=== PATIENT | female | born 1970 ===

== ENCOUNTER 2019-07-17 20:21 | Emergency (ER) | payer BC ==
[2019-07-17 20:50] VITALS: BP 132/75
--- NOTE | 2019-07-17 20:51 | UC ---
Throat Pain/Nasal [place] HPI - HPI Summary HPI Summary: 48 yo with onset of sore throat and dysphagia since this morning, without fever. Typically healthy, she has seasonal allergies and went for a run on Tuesday, with development of a whole head headache later that night which she associated with allergies. Headache controlled with Zyrtec and aleve, is here because of concern about her sore throat. dx with sinusitis and laryngitis yesterday and was started on an antibiotic. Takes benadryl nightly. No vomiting, visual changes, fever. - History of Current Complaint Chief Complaint: UCRespiratory Stated Complaint: SORE THROAT Time Seen by Provider: 07/17/19 20:41 Hx Obtained From: Patient Hx Last Menstrual Period: 1 week ago Onset/Duration: Sudden Onset, Lasting Days - 1 day of sore throat Pain Intensity: 3 Cough: None Associated Signs & Symptoms: Positive: Dysphagia, Sinus Discomfort. Negative: Wheezing, Hoarseness, Nasal Discharge, Fever, Vomiting, Rash Related History: Seasonal Allergies - Epiglottits Risk Factors Epiglottis Risk Factors: Negative - Allergies/Home Medications Allergies/Adverse Reactions: Allergies Allergy/AdvReac Type Severity Reaction Status Date / Time Penicillins Allergy Unknown Verified 07/17/19 20:32 Reaction Details Home Medications: Home Medications Azithromyxin REBECA (NF) [Z-Rebeca (Zithromax) 250 mg tabs #6] 2 tab PO .TODAY, THEN 1 DAILY #6 tab 07/17/19 [Rx] Cetirizine* [ZyrTEC 10 MG TAB*] 10 mg PO DAILY 07/17/19 [History Confirmed 07/16] Naproxen Sodium [Aleve] 440 mg PO Q12H PRN 07/17/19 [History Confirmed 07/17/19] PMH/Surg Hx/FS Hx/Imm Hx - Additional Past Medical History Additional PMH: seasonal allergies Previously Healthy: Yes - Surgical History Surgical History: None - Family History Known Family History: Positive: Other - + hx of allergies - Social History Occupation: Employed Full-time Lives: With Family Alcohol Use: Rare Substance Use Type: None Smoking Status (MU): Never Smoked Tobacco Review of Systems All Other Systems Reviewed And Are Negative: Yes Constitutional: Positive: Negative Skin: Positive: Negative Eyes: Positive: Negative ENT: Positive: Sore Throat, Nasal Discharge, Sinus Congestion. Negative: Ear Ache, Sinus Pain/Tenderness Respiratory: Positive: Negative. Negative: Shortness Of Breath, Cough Cardiovascular: Negative: Chest Pain Gastrointestinal: Negative: Vomiting, Diarrhea, Nausea Genitourinary: Positive: Negative Motor: Positive: Negative Neurovascular: Positive: Negative Musculoskeletal: Positive: Negative Neurological/Mental Status: Positive: Headache - present only in the day, no visual changes or photophobia associated. Psychological: Positive: Negative Is Patient Immunocompromised?: No Physical Exam Triage Information Reviewed: Yes Appearance: Well-Appearing, No Pain Distress ENT: Positive: Pharyngeal erythema - posterior. Negative: Tonsillar swelling, Tonsillar exudate Neck: Positive: Supple, Nontender, No Lymphadenopathy Respiratory: Positive: Lungs clear, Normal breath sounds Cardiovascular: Positive: RRR, No Murmur Musculoskeletal Exam: Normal Neurological Exam: Normal Psychological Exam: Normal Skin Exam: Normal Throat Pain/Nasal Course/Dx - Course Course Of Treatment: Discussed continuing antihistamines and nsaid, add sudafed. Discussed that she can defer antibiotic which she can initiate if she develops typical sinsu symptoms. - Differential Dx/Diagnosis Differential Diagnosis/HQI/PQRI: Pharyngitis, Sinusitis, URI, Other - seasonal allergies Provider Diagnosis: Seasonal allergies Discharge ED - Sign-Out/Discharge Documenting (check all that apply): Patient Departure All imaging exams completed and their final reports reviewed: No Studies - Discharge Plan Condition: Stable Disposition: HOME Prescriptions: Azithromyxin REBECA (NF) [Z-Rebeca (Zithromax) 250 mg tabs #6] 2 tab PO .TODAY, THEN 1 DAILY #6 tab Patient Education Materials: Sinusitis (ED), Allergies (ED) Referrals: No Primary Care Phys,NOPCP [Primary Care Provider] - Additional Instructions: Your symptoms, including the sore throat, are most likely from allergies. Continue use of zyrtec and benadryl, and you can add pseudoephedrine for control of drainage from allergies. This sometimes helps to relieve the sore throat. If you develop typical sinus symptoms as you have in the past, begin use of azithromycin as an antibiotic. I suggest that you defer antibiotics and monitor symptoms for a few more days. Ensure increase in fluids, and warm drinks can relieve the sore throat. Follow up if you have progressive cough or shortness of breath. - Billing Disposition and Condition Condition: STABLE Disposition: Home
== END 2019-07-17 21:22 | disposition home or self-care (01) ==
LOC: UCEAST 20:21
DX: J30.2 Other seasonal allergic rhinitis (principal); Z88.0 Allergy status to penicillin
CPT/HCPCS: 99202; G0463